=== PATIENT | male | born 1995 | race Caucasian/White ===

== ENCOUNTER 2016-11-08 06:32 | Emergency (ER) | payer SELFPAY ==
[~2016-11-08] VITALS: Ht 180.3 cm; Wt 79.4 kg
[2016-11-08] MEDS ORDERED: FAMOTIDINE 20 MG/2 ML VIAL IVP ONE (07:00)
[2016-11-08] MEDS ORDERED: DEXAMETHASONE SOD PHOS 20 MG/5 ML VIAL. IV ONE (07:00)
--- NOTE | 2016-11-08 07:05 | PHYS DOC ---
Past Medical History Past Medical History: No Pertinent History Past Surgical History: Other Additional Past Surgical Histo: left thumb Alcohol Use: Occasionally Drug Use: Marijuana Social History Narrative: states he tried marijuana once and it was 1 week ago Adult General Chief Complaint Chief Complaint: ALLERGIC REACTION HPI HPI Patient is a 21 year old male who presents with complaint of an allergic reaction. Patient states that his symptoms started last night. The patient states that he thinks he may be allergic to a bedsheet freshener that he sprayed on his sheets yesterday. Patient states that he covered himself in his blanket at about 7:00 and started to have itching across his body. Patient states that he started getting raised red areas all over his body shortly afterward. Patient took 50 mg of Benadryl yesterday evening before midnight, then states that he took another 50 mg of Benadryl prior to arrival here in the emergency department. Patient states that he is not having any respiratory symptoms at this time and does not feel any throat tightening, difficulty breathing, or difficulty swallowing. Patient denies any significant past medical history. Patient currently not in any pain. Review of Systems Review of Systems Constitutional: Denies fever or chills [] Eyes: Denies change in visual acuity, redness, or eye pain [] HENT: Denies nasal congestion or sore throat [] Respiratory: Denies cough or shortness of breath [] Cardiovascular: No additional information not addressed in HPI [] GI: Denies abdominal pain, nausea, vomiting, bloody stools or diarrhea [] : Denies dysuria or hematuria [] Musculoskeletal: Denies back pain or joint pain [] Integument: Rash, pruritus [] Neurologic: Denies headache, focal weakness or sensory changes [] Endocrine: Denies polyuria or polydipsia [] Current Medications Current Medications Current Medications Medications (Trade) Dose Ordered Sig/Shiela Start Time Stop Time Status Last Admin Dose Admin Dexamethasone Sodium Phosphate (Decadron) 16 mg 1X ONCE 11/08/16 07:00 11/08/16 07:01 DC 11/08/16 07:03 16 MG Famotidine (Pepcid) 20 mg 1X ONCE 11/08/16 07:00 11/08/16 07:01 DC 11/08/16 07:02 20 MG Allergies Allergies Allergies Coded Allergies Type Severity Reaction Last Updated Verified No Known Drug Allergies 11/08/16 No Physical Exam Physical Exam Constitutional: Alert, afebrile, No acute distress [] HENT: Normocephalic, atraumatic, bilateral external ears normal, oropharynx moist, no oral exudates, nose normal. [] Eyes: PERRLA, EOMI, conjunctiva normal, no discharge. [] Neck: Normal range of motion, no tenderness, supple, no stridor. [] Cardiovascular:Heart rate regular rhythm, no murmur [] Lungs & Thorax: Bilateral breath sounds clear to auscultation [] Abdomen: Bowel sounds normal, soft, no tenderness, no masses, no pulsatile masses. [] Skin: Warm, dry, diffuse urticarial rash present on neck, trunk, and bilateral upper and lower extremities. [] Back: No tenderness, no CVA tenderness. [] Extremities: No tenderness, no cyanosis, no clubbing, ROM intact, no edema. [] Neurologic: Alert and oriented X 3, normal motor function, normal sensory function, no focal deficits noted. [] Current Patient Data Vital Signs Vital Signs Date Time Temp Pulse Resp B/P Pulse Ox O2 Delivery O2 Flow Rate FiO2 11/08/16 06:35 98.4 98 18 141/81 98 Room Air 98.4 EKG EKG Not performed [] Radiology/Procedures Radiology/Procedures Not performed [] Course & Med Decision Making Course & Med Decision Making Pertinent Labs and Imaging studies reviewed. (See chart for details) The patient was given 60 mg of IV Decadron and 20 mg of IV Pepcid in the emergency department. The patient was observed with no further worsening of symptoms. Recommended that the patient continue on one to 2 capsules of Benadryl every 6 hours, Pepcid twice a day, and patient will be discharged with prescriptions for Medrol Dosepak as well as EpiPen to have on hand in case of severe anaphylactic reaction. Recommended the patient wash his sheets to remove any exposure, and if this does not help the patient will need to replace his sheets at home. Advised follow-up in 4 days if symptoms are not improving and immediately return to the emergency department for any worsening symptoms. Patient was understanding and in agreement with treatment plan. Dragon Disclaimer Dragon Disclaimer This electronic medical record was generated, in whole or in part, using a voice recognition dictation system. Departure Departure Impression: Primary Impression: Allergic reaction Additional Impression: Urticaria Disposition: HOME, SELF-CARE Condition: IMPROVED Patient Instructions: Hives Additional Instructions: Follow-up with your primary doctor in 4 days if symptoms are not improving. Return to the emergency department for any worsening symptoms. Scripts Epinephrine (Epipen 2-Elias)0.3 Mg/0.3 Ml Auto.injct0.3 Mg IJ PRN 1X PRN ANAPHYLAXIS #2 DIS.SYR Take as directed on packaging. Call 911 after giving your self this medication. Prov:MARISSA HEREDIA MD 11/08/16 Methylprednisolone (Medrol)4 Mg Tab.ds.pk1 Pkg PO UD #1 PKG Prov:MARISSA HEREDIA MD 11/08/16 Problem Qualifiers Primary Impression: Allergic reaction Encounter type: initial encounter Qualified Code: T78.40XA - Allergy, unspecified, initial encounter MARISSA HEREDIA MD Nov 08, 2016 07:05
[2016-11-08 07:45] VITALS: BP 127/70
[2016-11-08] MEDS ORDERED: METH4TAB2 PO (07:48)
[2016-11-08] MEDS ORDERED: EPIN0.3A4 IJ (07:48)
== END 2016-11-08 07:55 | disposition home or self-care (01) ==
LOC: ER 06:32
DX: T78.49XA Other allergy, initial encounter (principal); L50.0 Allergic urticaria; F12.10 Cannabis abuse, uncomplicated; X58.XXXA Exposure to other specified factors, initial encounter
CPT/HCPCS: 96374; 96375; 99284; J1100; S0028

== ENCOUNTER 2021-01-07 23:25 | Emergency (ER) | payer SELFPAY ==
[~2021-01-07] VITALS: Ht 185.4 cm; Wt 74.1 kg
[~2021-01-07 23:25] MED LIST: EPIPEN 2-P0.3 MG/0.3 IJ; METH4TAB2 PO
[2021-01-07 23:35] VITALS: BP 112/54
--- NOTE | 2021-01-07 23:58 | PHYS DOC ---
Past Medical History Past Medical History: No Pertinent History Past Surgical History: Other Additional Past Surgical Histo: left thumb Smoking Status: Never Smoker Alcohol Use: Occasionally Drug Use: Marijuana General Adult EDM: Chief Complaint: ALLERGIC REACTION HPI: HPI: 25-year-old male presents with report of pruritic rash all over his body that started today at approximately 11 AM. Patient reports initially started on his legs. Patient reports use of new laundry detergent. Denies taking any medication prior to arrival. Patient denies any tongue swelling or difficulty swallowing or breathing. Denies any other known allergen exposure. Review of Systems: Review of Systems: Constitutional: Denies fever or chills Eyes: Denies redness or eye pain HENT: Denies nasal congestion or tongue swelling Respiratory: Denies cough or shortness of breath Cardiovascular: Denies chest pain or palpitations GI: Denies abdominal pain, nausea, or vomiting : Denies dysuria or hematuria Musculoskeletal: Denies back pain or joint pain Integument: Reports pruritic raised rash Neurologic: Denies headache, focal weakness or sensory changes Complete systems were reviewed and found to be within normal limits, except as documented in this note. Allergies: Allergies: Allergies Coded Allergies Type Severity Reaction Last Updated Verified No Known Drug Allergies 11/08/16 No Physical Exam: PE: Constitutional: Well developed, well nourished, no acute distress, non-toxic appearance HENT: Normocephalic, atraumatic, tongue normal, handling own secretions. Eyes: Conjunctiva normal, no discharge Neck: Normal range of motion, no tenderness, supple Lungs & Thorax: No respiratory distress, equal chest rise and fall Skin: Warm, dry, raised rash consistent with urticaria to trunk and upper arms and legs Extremities: No tenderness, ROM intact, no edema Neurologic: Alert and oriented X 3, no focal deficits noted Psychologic: Affect normal, judgment normal EKG: EKG: [] Radiology/Procedures: Radiology/Procedures: [] Course & Med Decision Making: Course & Med Decision Making Patient presents with HPI and physical exam consistent for urticaria likely secondary to exposure to new detergent. Airway intact. Patient handling own secretions. Tongue normal. Symptomatic IM dexamethasone, p.o. Benadryl, and p.o. Pepcid provided. Patient stable for discharge with outpatient follow-up with PCP. Discussed findings and plan with patient and father, who acknowledge understanding and a greement. Paulina Disclaimer: Paulina Disclaimer: This electronic medical record was generated, in whole or in part, using a voice recognition dictation system. Departure Departure Impression: Primary Impression: Urticaria Disposition: 01 DC HOME SELF CARE/HOMELESS Condition: STABLE Referrals: NO PCP (PCP) Patient Instructions: Hives, [id number] Additional Instructions: Discontinue use of new detergent. Rewash any of your clothing that might have been washed with potential new detergent allergen. Scripts Prednisone (PREDNISONE) 20 Mg Tablet 2 TAB PO DAILY, #8 TAB Start this prescription tomorrow, 01/09/21 Prov: KESHA DUKES DO 01/08/21 Diphenhydramine Hcl (BENADRYL) 25 Mg Capsule 1-2 CAP PO Q4-6HRS PRN for RASH, #20 CAP 0 Refills Prov: KESHA DUKES DO 01/08/21 Famotidine (PEPCID) 20 Mg Tablet 20 MG PO BID, #10 TAB Prov: KESHA DUKES DO 01/08/21 KESHA DUKES DO Jan 07, 2021 23:58
[2021-01-08] MEDS ORDERED: PRED20TA PO (00:03)
[2021-01-08] MEDS ORDERED: FAMO-63 PO (00:03)
[2021-01-08] MEDS ORDERED: DIPH25CA58 PO (00:03)
[2021-01-08] MEDS ORDERED: diphenhydrAMINE HCL 25 MG CAPSULE PO ONE (00:15)
[2021-01-08] MEDS ORDERED: DEXAMETHASONE SOD PHOS 20 MG/5 ML VIAL. IM ONE (00:15)
[2021-01-08] MEDS ORDERED: FAMOTIDINE 20 MG TABLET. PO ONE (00:15)
== END 2021-01-08 00:38 | disposition home or self-care (01) ==
LOC: ER 23:25
DX: L50.8 Other urticaria (principal); R21 Rash and other nonspecific skin eruption; F12.90 Cannabis use, unspecified, uncomplicated; Z98.890 Other specified postprocedural states
CPT/HCPCS: 96372; 99283; J1100; Q0163

== ENCOUNTER 2021-01-08 19:21 | Emergency (ER) | payer SELFPAY ==
[~2021-01-08] VITALS: Ht 185.4 cm; Wt 77.1 kg
[~2021-01-08 19:21] MED LIST changes: +DIPH25CA58 PO; +FAMO-63 PO; +PRED20TA PO
[2021-01-08 20:53] VITALS: BP 114/53
[2021-01-08] MEDS ORDERED: FAMOTIDINE 20 MG TABLET. PO ONE (21:45)
[2021-01-08] MEDS ORDERED: DEXAMETHASONE 4 MG TABLET PO ONE (21:45)
--- NOTE | 2021-01-08 21:45 | PHYS DOC ---
Past Medical History Past Medical History: No Pertinent History (RACHELLE GARCIA APRN) Past Surgical History: No Surgical History Additional Past Surgical Histo: R wrist fx, L thumb fx (RACHELLE GARCIA APRN) Smoking Status: Current Every Day Smoker Alcohol Use: Occasionally Drug Use: None (RACHELLE GARCIA APRN) General Adult EDM: Chief Complaint: SKIN RASH/ABSCESS HPI: HPI: Patient is a 25 year old male who presents with was here yesterday with a pruritic began yesterday at 11:00. He states he was using a new laundry detergent. He was discharged home with a Medrol Dosepak, Pepcid and Benadryl and epinephrine if needed. Patient never got any of his prescriptions filled because he states he does not have the money. He is back today because he states that he still very itchy and is not getting better. He also states that the left side of his tongue was swollen today. Patient states he did take 50 mg of Benadryl at 1740. There is no facial, tongue or throat swelling seen. (RACHELLE GARCIA APPEALS ASSISTANT) Review of Systems: Review of Systems: Constitutional: Denies fever or chills. [] Eyes: Denies change in visual acuity. [] HENT: Denies nasal congestion or sore throat. [] Respiratory: Denies cough or shortness of breath. [] Cardiovascular: Denies chest pain or edema. [] GI: Denies abdominal pain, nausea, vomiting, bloody stools or diarrhea. [] : Denies dysuria. [] Musculoskeletal: Denies back pain or joint pain. [] Integument: +Generalized itchy rash. [] Neurologic: Denies headache, focal weakness or sensory changes. [] Endocrine: Denies polyuria or polydipsia. [] Lymphatic: Denies swollen glands. [] Psychiatric: Denies depression or anxiety. [] (RACHELLE GARCIA APRN) Heart Score: Risk Factors: Risk Factors: DM, Current or recent (<one month) smoker, HTN, HLP, family history of CAD, obesity. Risk Scores: Score 0 - 3: 2.5% MACE over next 6 weeks - Discharge Home Score 4 - 6: 20.3% MACE over next 6 weeks - Admit for Clinical Observation Score 7 - 10: 72.7% MACE over next 6 weeks - Early Invasive Strategies (RACHELLE GARCIA APRN) Current Medications: Current Medications Medications (Trade) Dose Ordered Sig/Shiela Start Time Stop Time Status Last Admin Dose Admin Dexamethasone (Decadron) 10 mg 1X 01/08/21 21:45 UNV Famotidine (Pepcid) 20 mg 1X ONCE 01/08/21 21:45 01/08/21 21:46 UNV (RACHELLE GARCIA APRN) Allergies: Allergies: Allergies Coded Allergies Type Severity Reaction Last Updated Verified No Known Drug Allergies 11/08/16 No (RACHELLE GARCIA APRN) Physical Exam: PE: Constitutional: Well developed, well nourished, no acute distress, non-toxic appearance. [] HENT: Normocephalic, atraumatic, bilateral external ears normal, oropharynx moist, no oral exudates, nose normal. [] Eyes: PERRLA, EOMI, conjunctiva normal, no discharge. [] Neck: Normal range of motion, no tenderness, supple, no stridor. [] Cardiovascular:Heart rate regular rhythm, no murmur [] Lungs & Thorax: Bilateral breath sounds clear to auscultation [] Abdomen: Bowel sounds normal, soft, no tenderness, no masses, no pulsatile masses. [] Skin: Warm, dry, no erythema, generalized red nonblistered rash. [] Back: No tenderness, no CVA tenderness. [] Extremities: No tenderness, no cyanosis, no clubbing, ROM intact, no edema. [] Neurologic: Alert and oriented X 3, normal motor function, normal sensory function, no focal deficits noted. [] Psychologic: Affect normal, judgement normal, mood normal. [] (RACHELLE GARCIA APRN) Current Patient Data: Vital Signs: Vital Signs Date Time Temp Pulse Resp B/P (MAP) Pulse Ox O2 Delivery O2 Flow Rate FiO2 01/08/21 20:53 98.3 87 20 98 Room Air 98.3 (RACHELLE GARCIA APRN) EKG: EKG: [] ([facility]EREIRA APRN) Radiology/Procedures: Radiology/Procedures: [] (RACHELLE GARCIA APRN) Course & Med Decision Making: Course & Med Decision Making Pertinent Labs and Imaging studies reviewed. (See chart for details) See HPI. Ambulatory with steady gait and speaks in full clear sentences. No angioedema or swelling to tongue, lips, uvula or throat is seen on exam. Lungs are clear all station all lobes. Vital signs within normal limits. He was given 10 mg of dexamethasone, Pepcid in the ED. Patient denies shortness of b reath, nausea, vomiting, diarrhea, fever, wheezing, chest pain. [] (RACHELLE GARCIA APRN) Course & Med Decision Making Patient seen and evaluated by GWENDOLYN independently. I was available for consultation. (JAMAR KRISHNAN DO) Dragon Disclaimer: [employer] Disclaimer: This electronic medical record was generated, in whole or in part, using a voice recognition dictation system. (RACHELLE GARCIA APRN) Departure Departure Impression: Primary Impression: Allergic reaction Qualified Codes: T78.40XD - Allergy, unspecified, subsequent encounter Additional Impression: Urticaria Disposition: 01 DC HOME SELF CARE/HOMELESS Condition: STABLE Referrals: NO PCP (PCP) Patient Instructions: Allergies, Generic, Rash Additional Instructions: Get your prescriptions filled as soon as possible. Continue taking Benadryl 25 mg every 6 hours. If you begin having facial swelling and shortness of breath return emergency room. RACHELLE GARCIA APRN Jan 08, 2021 21:45 JAMAR KRISHNAN DO Jan 08, 2021 22:42
== END 2021-01-08 23:03 | disposition home or self-care (01) ==
LOC: ER 19:21
DX: L50.0 Allergic urticaria (principal); F17.200 Nicotine dependence, unspecified, uncomplicated
CPT/HCPCS: 99283

== ENCOUNTER 2021-01-10 00:04 | Observation (INO) | payer SELFPAY ==
[~2021-01-10] VITALS: Ht 185.4 cm; Wt 77.3 kg
[2021-01-10] MEDS ORDERED: FAMOTIDINE 20 MG/2 ML VIAL IVP ONE (00:30)
[2021-01-10] MEDS ORDERED: ONDANSETRON PF 4 MG/2 ML VIAL. IVP ONE (00:30)
[2021-01-10] MEDS ORDERED: DEXAMETHASONE 4 MG TABLET PO ONE (00:30)
--- NOTE | 2021-01-10 01:08 | PHYS DOC ---
Past Medical History Past Medical History: No Pertinent History Past Surgical History: No Surgical History Additional Past Surgical Histo: R wrist fx, L thumb fx Smoking Status: Current Every Day Smoker Alcohol Use: Occasionally Drug Use: None Adult General Chief Complaint Chief Complaint: ALLERGIC REACTION HPI HPI Patient is a 25 year old male presenting the emergency department for worsening generalized rash. Patient has been here the last 2 days because 2 days ago he started noting mild generalized rash. Patient has mother believe that this was secondary to exposure to new detergent. Over the last 24 hours patient feels this may get worse. Patient was seen and treated here yesterday appears to have gotten multiple medications to help. Does state that he took, took a Benadryl but feels that this is gotten worse. Patient states that over the last 2 hours noted swelling around the eyes, nausea and vomiting as well as lip swelling and feels that there are hives and urticaria have severely increased. Denies any abdominal pain, diarrhea, fever or chills Review of Systems Review of Systems Constitutional: Denies fever or chills [] Eyes: Denies change in visual acuity, redness, or eye pain [] HENT: Denies nasal congestion or sore throat [] Respiratory: Denies cough or shortness of breath [] Cardiovascular: No additional information not addressed in HPI [] GI: Denies abdominal pain, nausea, vomiting, bloody stools or diarrhea [] : Denies dysuria or hematuria [] Musculoskeletal: Denies back pain or joint pain [] Integument: Denies rash or skin lesions [] Neurologic: Denies headache, focal weakness or sensory changes [] Endocrine: Denies polyuria or polydipsia [] All other systems were reviewed and found to be within normal limits, except as documented in this note. Current Medications Current Medications Current Medications Medications (Trade) Dose Ordered Sig/Shiela Start Time Stop Time Status Last Admin Dose Admin Dexamethasone (Decadron) 16 mg ONCE ONCE 01/10/21 00:30 01/10/21 00:31 DC 01/10/21 01:11 16 MG Epinephrine HCl (Adrenalin) 0.3 mg 1X ONCE 01/10/21 02:15 01/10/21 02:16 DC 01/10/21 03:13 0.3 MG Famotidine (Pepcid Vial) 20 mg 1X ONCE 01/10/21 00:30 01/10/21 00:31 DC 01/10/21 00:28 20 MG Ondansetron HCl (Zofran) 4 mg 1X ONCE 01/10/21 00:30 01/10/21 00:31 DC 01/10/21 00:28 4 MG Allergies Allergies Allergies Coded Allergies Type Severity Reaction Last Updated Verified No Known Drug Allergies 11/08/16 No Physical Exam Physical Exam Constitutional: Well developed, well nourished, no acute distress, non-toxic appearance. [] HENT: Normocephalic, atraumatic, bilateral external ears normal, oropharynx moist, no oral exudates, nose normal. [] Eyes: PERRLA, EOMI, conjunctiva normal, no discharge. [] Neck: Normal range of motion, no tenderness, supple, no stridor. [] Cardiovascular:Heart rate regular rhythm, no murmur [] Lungs & Thorax: Bilateral breath sounds clear to auscultation [] Abdomen: Bowel sounds normal, soft, no tenderness, no masses, no pulsatile masses. [] Skin: Warm, dry, no erythema, severe generalized urticarial rash which does include bilateral upper eyelids. [] Back: No tenderness, no CVA tenderness. [] Extremities: No tenderness, no cyanosis, no clubbing, ROM intact, no edema. [] Neurologic: Alert and oriented X 3, normal motor function, normal sensory function, no focal deficits noted. [] Psychologic: Affect normal, judgement normal, mood normal. [] Current Patient Data Vital Signs Vital Signs Date Time Temp Pulse Resp B/P (MAP) Pulse Ox O2 Delivery O2 Flow Rate FiO2 01/10/21 00:10 98.4 97 16 100/63 (75) 100 Room Air 98.4 Lab Values Laboratory Tests Test 01/10/21 03:37 01/10/21 03:50 White Blood Count 14.0 x10^3/uL (4.0-11.0) H Red Blood Count 4.69 x10^6/uL (4.30-5.70) Hemoglobin 14.5 g/dL (13.0-17.5) Hematocrit 42.4 % (39.0-53.0) Mean Corpuscular Volume 90 fL (79-100) Mean Corpuscular Hemoglobin 31 pg (25-35) Mean Corpuscular Hemoglobin Concent 34 g/dL (31-37) Red Cell Distribution Width 13.6 % (11.5-14.5) Platelet Count 183 x10^3/uL (140-400) Neutrophils (%) (Auto) 89 % (31-73) H Lymphocytes (%) (Auto) 8 % (24-48) L Monocytes (%) (Auto) 3 % (0-9) Eosinophils (%) (Auto) 1 % (0-3) Basophils (%) (Auto) 0 % (0-3) Neutrophils # (Auto) 12.5 x10^3/uL (1.8-7.7) H Lymphocytes # (Auto) 1.1 x10^3/uL (1.0-4.8) Monocytes # (Auto) 0.4 x10^3/uL (0.0-1.1) Eosinophils # (Auto) 0.1 x10^3/uL (0.0-0.7) Basophils # (Auto) 0.0 x10^3/uL (0.0-0.2) Segmented Neutrophils % 80 % (35-66) H Band Neutrophils % 6 % (0-9) Lymphocytes % 9 % (24-48) L Monocytes % 5 % (0-10) Platelet Estimate Adequate (ADEQUATE) Prothrombin Time 13.4 SEC (11.7-14.0) Prothrombin Time INR 1.1 (0.8-1.1) Activated Partial Thromboplast Time 24 SEC (24-38) Sodium Level 138 mmol/L (136-145) Potassium Level 3.6 mmol/L (3.5-5.1) Chloride Level 103 mmol/L (98-107) Carbon Dioxide Level 27 mmol/L (21-32) Anion Gap 8 (6-14) Blood Urea Nitrogen 19 mg/dL (8-26) Creatinine 1.2 mg/dL (0.7-1.3) Estimated GFR (Cockcroft-Gault) 73.2 Glucose Level 134 mg/dL (70-99) H Calcium Level 8.3 mg/dL (8.5-10.1) L Total Bilirubin 0.7 mg/dL (0.2-1.0) Direct Bilirubin 0.2 mg/dL (0.0-0.2) Aspartate Amino Transferase (AST) 30 U/L (15-37) Alanine Aminotransferase (ALT) 43 U/L (16-63) Alkaline Phosphatase 56 U/L (46-116) Total Protein 6.9 g/dL (6.4-8.2) Albumin 4.0 g/dL (3.4-5.0) Lactic Acid Level 0.9 mmol/L (0.4-2.0) Laboratory Tests 01/10/21 03:37 Laboratory Tests 01/10/21 03:37 EKG EKG [] Radiology/Procedures Radiology/Procedures [] Course & Med Decision Making Course & Med Decision Making Pertinent Labs and Imaging studies reviewed. (See chart for details) 25M presenting with what appears to be worsening allergic reaction but now involves lips of the eyes. At this time will provide Benadryl, Pepcid and Solu- Medrol and reevaluate. At this time there is no evidence of acute impending airway involvement. After initial treatment patient only had minimal response. Patient was given a dose of epinephrine did have moderate improvement but still with significant swelling around the eyes. At this time will admit. Labs reviewed and unremarkable Paulina Disclaimer Paulina Disclaimer This electronic medical record was generated, in whole or in part, using a voice recognition dictation system. Departure Departure Impression: Primary Impression: Acute allergic reaction Disposition: ADMITTED INPT THIS HOSP Condition: GUARDED Referrals: NO PCP (PCP) MARISSA MYERS MD Jan 10, 2021 01:08
[2021-01-10] MEDS ORDERED: EPINEPHrine 1 MG/ML VIAL SQ ONE (02:15)
[2021-01-10 03:51] LABS: BASO % 0 % (0-3); EOS # 0.1 x10^3/uL (0.0-0.7); EOS % 1 % (0-3); HEMATOCRIT 42.4 % (39.0-53.0); HEMOGLOBIN 14.5 g/dL (13.0-17.5); LYMPH # 1.1 x10^3/uL (1.0-4.8); LYMPH % 8 % (24-48); MEAN CORPUSCULAR HEMOGLOBIN 31 pg (25-35); MEAN CORPUSCULAR HGB CONC 34 g/dL (31-37); MEAN CORPUSCULAR VOLUME 90 fL (79-100); MONO # 0.4 x10^3/uL (0.0-1.1); MONO % 3 % (0-9); NEUT # 12.5 x10^3/uL (1.8-7.7); NEUT % 89 % (31-73); PLATELET COUNT 183 x10^3/uL (140-400); RED BLOOD COUNT 4.69 x10^6/uL (4.30-5.70); RED CELL DISTRIBUTION WIDTH 13.6 % (11.5-14.5)
[2021-01-10 04:08] LABS: PROTHROMBIN TIME PATIENT 13.4 SEC (11.7-14.0)
[2021-01-10 04:09] LABS: CALCIUM 8.3 mg/dL (8.5-10.1); CREATININE 1.2 mg/dL (0.7-1.3); GFR 73.2; POTASSIUM 3.6 mmol/L (3.5-5.1)
[2021-01-10 04:17] LABS: DIRECT BILIRUBIN 0.2 mg/dL (0.0-0.2); TOTAL BILIRUBIN 0.7 mg/dL (0.2-1.0); TOTAL PROTEIN 6.9 g/dL (6.4-8.2)
[2021-01-10 05:54] LABS: % BANDS 6 % (0-9); % LYMPHS 9 % (24-48); % MONOS 5 % (0-10); % SEGS 80 % (35-66); PLT ESTIMATE ADEQUATE (ADEQUATE)
[2021-01-10 06:07] LABS: BILIRUBIN,URINE SMALL (NEG); CLARITY,URINE CLEAR; COLOR,URINE YELLOW; NITRITE,URINE NEGATIVE (NEG); PROTEIN,URINE NEGATIVE (NEG-TRACE)
[2021-01-10] MEDS ORDERED: ONDANSETRON PF 4 MG/2 ML VIAL. IV PRN (06:15)
[2021-01-10] MEDS ORDERED: MORPHINE SULFATE 4 MG/ML VIAL. IV PRN (06:15)
[2021-01-10 06:31] LABS: BACTERIA,URINE FEW /HPF (0-FEW); RBC,URINE 0 /HPF (0-2)
[2021-01-10 07:45] VITALS: BP 121/73
--- NOTE | 2021-01-10 10:07 | RAD ---
EXAM: PA and Lateral Views of the Chest DATE: 01/10/2021 9:42 AM INDICATION: Reason: vasculitis COMPARISON: No Prior FINDINGS: The heart is not enlarged. Mediastinal and hilar contours are normal. No focal parenchymal airspace opacity. No pleural effusion or pneumothorax. IMPRESSION: 1. No radiographic evidence for acute cardiopulmonary process. Electronically signed by: Zaheer Garcia MD (01/10/2021 10:05 AM) [id number]
[2021-01-10] MEDS ORDERED: IBUPROFEN 400 MG TABLET. PO ONE (10:45)
[2021-01-10] MEDS ORDERED: COLCHICINE 0.6 MG TABLET PO ONE (10:45)
[2021-01-10] MEDS: predniSONE 20 MG TABLET PO SCH (10:55)
[2021-01-10 11:00] VITALS: BP 125/63
--- NOTE | 2021-01-10 13:26 | PDOC1 ---
History and Physical Date of Admission Date of Admission DATE: 01/10/21 TIME: 13:21 Identification/Chief Complaint Chief Complaint rash Source Source: Chart review, Patient History of Present Illness History of Present Illness Mr. Sheikh, is a 25 year old male admit with severe rash. He has been to the ER 3 times in 4 days for this rash, given large doses of de cadron each time, and DC twice with meds that he did not fill. 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, they initially thought that he had new detergent, but removal of that has not improved his rash, Past Medical History Cardiovascular: No pertinent hx Pulmonary: No pertinent hx GI: No pertinent hx Heme/Onc: No pertinent hx Hepatobiliary: No pertinent hx Rheumatologic: No pertinent hx Social History Smoke: No ALCOHOL: none Drugs: None Current Problem List Problem List Problems Medical Problems: (1) Acute allergic reaction Status: Acute Current Medications Current Medications Current Medications Dexamethasone (Decadron) 16 mg ONCE ONCE PO Last administered on 01/10/21at 01:11; Start 01/10/21 at 00:30; Stop 01/10/21 at 00:31; Status DC Ondansetron HCl (Zofran) 4 mg 1X ONCE IVP Last administered on 01/10/21at 00:28; Start 01/10/21 at 00:30; Stop 01/10/21 at 00:31; Status DC Famotidine (Pepcid Vial) 20 mg 1X ONCE IVP Last administered on 01/10/21at 00:28; Start 01/10/21 at 00:30; Stop 01/10/21 at 00:31; Status DC Epinephrine HCl (Adrenalin) 0.3 mg 1X ONCE SQ Last administered on 01/10/21at 03:13; Start 01/10/21 at 02:15; Stop 01/10/21 at 02:16; Status DC Ondansetron HCl (Zofran) 4 mg PRN Q8HRS PRN IV NAUSEA/VOMITING Last administered on 01/10/21at 07:25; Start 01/10/21 at 06:15; Stop 01/11/21 at 06:14 Morphine Sulfate (Morphine Sulfate) 4 mg PRN Q2HR PRN IV PAIN Last administered on 01/10/21at 07:26; Start 01/10/21 at 06:15; Stop 01/11/21 at 06:14 Prednisone (Prednisone) 40 mg DAILY PO Last administered on 01/10/21at 10:55; Start 01/10/21 at 10:00 Colchicine (Colcrys) 0.6 mg 1X ONCE PO Last administered on 01/10/21at 11:43; Start 01/10/21 at 10:45; Stop 01/10/21 at 11:28; Status DC Ibuprofen (Motrin) 800 mg 1X ONCE PO Last administered on 01/10/21at 11:42; Start 01/10/21 at 10:45; Stop 01/10/21 at 11:28; Status DC Active Scripts Active Prednisone 20 Mg Tablet 2 Tab PO DAILY Start this prescription tomorrow, 01/09/21 Benadryl (Diphenhydramine Hcl) 25 Mg Capsule 1-2 Cap PO Q4-6HRS PRN Pepcid (Famotidine) 20 Mg Tablet 20 Mg PO BID Epipen 2-Elias (Epinephrine) 0.3 Mg/0.3 Ml Auto.injct 0.3 Mg IJ PRN 1X PRN Take as directed on packaging. Call 911 after giving your self this medication. Medrol (Methylprednisolone) 4 Mg Tab.ds.pk 1 Pkg PO UD Allergies Allergies: Coded Allergies: No Known Drug Allergies (Unverified , 11/08/16) ROS General: No: Chills, Night Sweats, Fatigue, Malaise, Appetite, Other PSYCHOLOGICAL ROS: No: Anxiety, Behavioral Disorder, Concentration difficultie, Decreased libido, Depression, Disorientation, Hallucinations, Hostility, Irritablity, Memory difficulties, Mood Swings, Obsessive thoughts, Physical abuse, Sexual abuse, Sleep disturbances, Suicidal ideation, Other Eyes: No Blurry vision, No Decreased vision, No Double vision, No Dry eyes, No Excessive tearing, No Eye Pain, No Itchy Eyes, No Loss of vision, No Photophobia, No Scotomata, No Uses contacts, No Uses glasses, No Other HEENT: No: Heacaches, Visual Changes, Hearing change, Nasal congestion, Nasal discharge, Oral lesions, Sinus pain, Sore Throat, Epistaxis, Sneezing, Snoring, Tinnitus, Vertigo, Vocal changes, Other ALLERGY AND IMMUNOLOGY: YES: Hives Respiratory: No: Cough, Hemoptysis, Orthopnea, Pleuritic Pain, Shortness of breath, SOB with excertion, Sputum Changes, Stridor, Tachypnea, Wheezing, Other Cardiovascular: No Chest Pain, No Palpitations, No Orthopnea, No Paroxysmal Noc. Dyspnea, No Edema, No Lt Headedness, No Other Gastrointestinal: No Nausea, No Vomiting, No Abdominal Pain, No Diarrhea, No Constipation, No Melena, No Hematochezia, No Other Genitourinary: No Dysuria, No Frequency, No Incontinence, No Hematuria, No R etention, No Discharge, No Urgency, No Pain, No Flank Pain, No Other, No , No , No , No , No , No , No Musculoskeletal: No Gait Disturbance, No Joint Pain, No Joint Stiffness, No Joint Swelling, No Muscle Pain, No Muscular Weakness, No Pain In:, No Swelling In:, No Other Skin: Yes Pruritus, Yes Rash, Yes Skin Lesion Changes, Yes Other; No Dry Skin, No Eczema, No Hair Changes, No Lumps, No Mole Changes, No Mottling, No Nail Changes, No Acne Physical Exam General: Alert, Oriented X3, moderate distress (itching, red, ) HEENT: Atraumatic, Mucous membr. moist/pink Lungs: Clear to auscultation Heart: S1S2, no murmurs, murmurs Extremities: No cyanosis Skin: No breakdown, Other (very numerous wheals, uticarial rash to groin, back, chest, neck, face is red without any wheal, left hand more swollen than righ) Neuro: Normal speech, Sensation intact Psych/Mental Status: Mental status NL, Mood NL Vitals Vitals Vital Signs Date Time Temp Pulse Resp B/P (MAP) Pulse Ox O2 Delivery O2 Flow Rate FiO2 01/10/21 11:00 98.3 87 18 125/63 (83) 97 Room Air 98.3 Labs Labs Laboratory Tests Test 01/10/21 03:37 01/10/21 03:50 01/10/21 05:00 White Blood Count 14.0 x10^3/uL (4.0-11.0) Red Blood Count 4.69 x10^6/uL (4.30-5.70) Hemoglobin 14.5 g/dL (13.0-17.5) Hematocrit 42.4 % (39.0-53.0) Mean Corpuscular Volume 90 fL (79-100) Mean Corpuscular Hemoglobin 31 pg (25-35) Mean Corpuscular Hemoglobin Concent 34 g/dL (31-37) Red Cell Distribution Width 13.6 % (11.5-14.5) Platelet Count 183 x10^3/uL (140-400) Neutrophils (%) (Auto) 89 % (31-73) Lymphocytes (%) (Auto) 8 % (24-48) Monocytes (%) (Auto) 3 % (0-9) Eosinophils (%) (Auto) 1 % (0-3) Basophils (%) (Auto) 0 % (0-3) Neutrophils # (Auto) 12.5 x10^3/uL (1.8-7.7) Lymphocytes # (Auto) 1.1 x10^3/uL (1.0-4.8) Monocytes # (Auto) 0.4 x10^3/uL (0.0-1.1) Eosinophils # (Auto) 0.1 x10^3/uL (0.0-0.7) Basophils # (Auto) 0.0 x10^3/uL (0.0-0.2) Segmented Neutrophils % 80 % (35-66) Band Neutrophils % 6 % (0-9) Lymphocytes % 9 % (24-48) Monocytes % 5 % (0-10) Platelet Estimate Adequate (ADEQUATE) Prothrombin Time 13.4 SEC (11.7-14.0) Prothromb Time International Ratio 1.1 (0.8-1.1) Activated Partial Thromboplast Time 24 SEC (24-38) Sodium Level 138 mmol/L (136-145) Potassium Level 3.6 mmol/L (3.5-5.1) Chloride Level 103 mmol/L (98-107) Carbon Dioxide Level 27 mmol/L (21-32) Anion Gap 8 (6-14) Blood Urea Nitrogen 19 mg/dL (8-26) Creatinine 1.2 mg/dL (0.7-1.3) Estimated GFR (Cockcroft-Gault) 73.2 Glucose Level 134 mg/dL (70-99) Calcium Level 8.3 mg/dL (8.5-10.1) Total Bilirubin 0.7 mg/dL (0.2-1.0) Direct Bilirubin 0.2 mg/dL (0.0-0.2) Aspartate Amino Transf (AST/SGOT) 30 U/L (15-37) Alanine Aminotransferase (ALT/SGPT) 43 U/L (16-63) Alkaline Phosphatase 56 U/L (46-116) C-Reactive Protein, Quantitative 7.1 mg/L (0-3.3) Total Protein 6.9 g/dL (6.4-8.2) Albumin 4.0 g/dL (3.4-5.0) Lactic Acid Level 0.9 mmol/L (0.4-2.0) Urine Collection Type Unknown Urine Color Yellow Urine Clarity Clear Urine pH 6.0 (<5.0-8.0) Urine Specific [place] >=1.030 (1.000-1.030) Urine Protein Negative mg/dL (NEG-TRACE) Urine Glucose (UA) Negative mg/dL (NEG) Urine Ketones (Stick) 15 mg/dL (NEG) Urine Blood Negative (NEG) Urine Nitrite Negative (NEG) Urine Bilirubin Small (NEG) Urine Urobilinogen Dipstick 1.0 mg/dL (0.2 mg/dL) Urine Leukocyte Esterase Negative (NEG) Urine RBC 0 /HPF (0-2) Urine WBC 1-4 /HPF (0-4) Urine Squamous Epithelial Cells Few /LPF Urine Bacteria Few /HPF (0-FEW) Urine Mucus Marked /LPF Laboratory Tests Test 01/10/21 03:37 01/10/21 03:50 01/10/21 05:00 White Blood Count 14.0 x10^3/uL (4.0-11.0) Red Blood Count 4.69 x10^6/uL (4.30-5.70) Hemoglobin 14.5 g/dL (13.0-17.5) Hematocrit 42.4 % (39.0-53.0) Mean Corpuscular Volume 90 fL (79-100) Mean Corpuscular Hemoglobin 31 pg (25-35) Mean Corpuscular Hemoglobin Concent 34 g/dL (31-37) Red Cell Distribution Width 13.6 % (11.5-14.5) Platelet Count 183 x10^3/uL (140-400) Neutrophils (%) (Auto) 89 % (31-73) Lymphocytes (%) (Auto) 8 % (24-48) Monocytes (%) (Auto) 3 % (0-9) Eosinophils (%) (Auto) 1 % (0-3) Basophils (%) (Auto) 0 % (0-3) Neutrophils # (Auto) 12.5 x10^3/uL (1.8-7.7) Lymphocytes # (Auto) 1.1 x10^3/uL (1.0-4.8) Monocytes # (Auto) 0.4 x10^3/uL (0.0-1.1) Eosinophils # (Auto) 0.1 x10^3/uL (0.0-0.7) Basophils # (Auto) 0.0 x10^3/uL (0.0-0.2) Segmented Neutrophils % 80 % (35-66) Band Neutrophils % 6 % (0-9) Lymphocytes % 9 % (24-48) Monocytes % 5 % (0-10) Platelet Estimate Adequate (ADEQUATE) Prothrombin Time 13.4 SEC (11.7-14.0) Prothromb Time International Ratio 1.1 (0.8-1.1) Activated Partial Thromboplast Time 24 SEC (24-38) Sodium Level 138 mmol/L (136-145) Potassium Level 3.6 mmol/L (3.5-5.1) Chloride Level 103 mmol/L (98-107) Carbon Dioxide Level 27 mmol/L (21-32) Anion Gap 8 (6-14) Blood Urea Nitrogen 19 mg/dL (8-26) Creatinine 1.2 mg/dL (0.7-1.3) Estimated GFR (Cockcroft-Gault) 73.2 Glucose Level 134 mg/dL (70-99) Calcium Level 8.3 mg/dL (8.5-10.1) Total Bilirubin 0.7 mg/dL (0.2-1.0) Direct Bilirubin 0.2 mg/dL (0.0-0.2) Aspartate Amino Transf (AST/SGOT) 30 U/L (15-37) Alanine Aminotransferase (ALT/SGPT) 43 U/L (16-63) Alkaline Phosphatase 56 U/L (46-116) C-Reactive Protein, Quantitative 7.1 mg/L (0-3.3) Total Protein 6.9 g/dL (6.4-8.2) Albumin 4.0 g/dL (3.4-5.0) Lactic Acid Level 0.9 mmol/L (0.4-2.0) Urine Collection Type Unknown Urine Color Yellow Urine Clarity Clear Urine pH 6.0 (<5.0-8.0) Urine Specific [place] >=1.030 (1.000-1.030) Urine Protein Negative mg/dL (NEG-TRACE) Urine Glucose (UA) Negative mg/dL (NEG) Urine Ketones (Stick) 15 mg/dL (NEG) Urine Blood Negative (NEG) Urine Nitrite Negative (NEG) Urine Bilirubin Small (NEG) Urine Urobilinogen Dipstick 1.0 mg/dL (0.2 mg/dL) Urine Leukocyte Esterase Negative (NEG) Urine RBC 0 /HPF (0-2) Urine WBC 1-4 /HPF (0-4) Urine Squamous Epithelial Cells Few /LPF Urine Bacteria Few /HPF (0-FEW) Urine Mucus Marked /LPF VTE Prophylaxis Ordered VTE Prophylaxis Devices: No VTE Pharmacological Prophylaxi: No Assessment/Plan 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 [facility], he is trying to get insurance today Justifications for Admission Other Justification DANA JONES MD Jan 10, 2021 13:26
[2021-01-10 15:00] VITALS: BP 138/51
[2021-01-10] MEDS: IBUPROFEN 400 MG TABLET. PO SCH ×2 (16:59→21:11)
[2021-01-10] MEDS ORDERED: methylPREDNISolone SOD SUCC PF 40 MG/ML VIAL. IV ONE (18:15)
[2021-01-10] MEDS ORDERED: MONTELUKAST SODIUM 10 MG TABLET. PO SCH (18:15)
[2021-01-10] MEDS: diphenhydrAMINE 50 MG/ML VIAL IVP PRN (18:25)
[2021-01-10 19:00] VITALS: BP 116/70
[2021-01-10] MEDS: FAMOTIDINE 20 MG/2 ML VIAL IVP SCH (21:11)
[2021-01-10 23:00] VITALS: BP 114/5
[2021-01-11 03:00] VITALS: BP 107/51
[2021-01-11 04:21] LABS: BASO % 0 % (0-3); EOS % 0 % (0-3); HEMATOCRIT 39.6 % (39.0-53.0); LYMPH # 0.9 x10^3/uL (1.0-4.8); LYMPH % 8 % (24-48); MEAN CORPUSCULAR HEMOGLOBIN 30 pg (25-35); MEAN CORPUSCULAR HGB CONC 33 g/dL (31-37); MEAN CORPUSCULAR VOLUME 92 fL (79-100); MONO # 0.6 x10^3/uL (0.0-1.1); MONO % 5 % (0-9); NEUT # 9.5 x10^3/uL (1.8-7.7); NEUT % 86 % (31-73); PLATELET COUNT 150 x10^3/uL (140-400); RED BLOOD COUNT 4.32 x10^6/uL (4.30-5.70); RED CELL DISTRIBUTION WIDTH 14.2 % (11.5-14.5); WHITE BLOOD COUNT 11.1 x10^3/uL (4.0-11.0)
[2021-01-11 04:32] LABS: CALCIUM 8.5 mg/dL (8.5-10.1); CREATININE 1.1 mg/dL (0.7-1.3); GFR 80.9; POTASSIUM 4.9 mmol/L (3.5-5.1)
[2021-01-11 07:14] VITALS: BP 124/69
[2021-01-11] MEDS: predniSONE 20 MG TABLET PO SCH (08:24)
[2021-01-11] MEDS: FAMOTIDINE 20 MG/2 ML VIAL IVP SCH (08:25)
[2021-01-11] MEDS: diphenhydrAMINE 50 MG/ML VIAL IVP PRN (08:25)
[2021-01-11] MEDS ORDERED: IBUP-1027 PO (08:49)
[2021-01-11] MEDS ORDERED: MONT10TA49 PO (08:49)
[2021-01-11] MEDS ORDERED: COLC0.6T34 PO (08:49)
[2021-01-11] MEDS ORDERED: COLCHICINE 0.6 MG TABLET PO SCH (09:00)
--- NOTE | 2021-01-11 09:41 | PDOC3 ---
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, Problems Medical Problems: (1) Acute allergic reaction Status: Acute Brief Hospital Course Allergies Allergies Coded Allergies Type Severity Reaction Last Updated Verified No Known Drug Allergies 11/08/16 No Vital Signs Vital Signs Date Time Temp Pulse Resp B/P (MAP) Pulse Ox O2 Delivery O2 Flow Rate FiO2 01/11/21 07:14 97.6 72 18 124/69 (87) 99 Room Air 97.6 Lab Results Laboratory Tests Test 01/10/21 03:37 01/10/21 03:50 01/10/21 05:00 01/11/21 03:30 White Blood Count 14.0 x10^3/uL (4.0-11.0) 11.1 x10^3/uL (4.0-11.0) Red Blood Count 4.69 x10^6/uL (4.30-5.70) 4.32 x10^6/uL (4.30-5.70) Hemoglobin 14.5 g/dL (13.0-17.5) 13.0 g/dL (13.0-17.5) Hematocrit 42.4 % (39.0-53.0) 39.6 % (39.0-53.0) Mean Corpuscular Volume 90 fL (79-100) 92 fL (79-100) Mean Corpuscular Hemoglobin 31 pg (25-35) 30 pg (25-35) Mean Corpuscular Hemoglobin Concent 34 g/dL (31-37) 33 g/dL (31-37) Red Cell Distribution Width 13.6 % (11.5-14.5) 14.2 % (11.5-14.5) Platelet Count 183 x10^3/uL (140-400) 150 x10^3/uL (140-400) Neutrophils (%) (Auto) 89 % (31-73) 86 % (31-73) Lymphocytes (%) (Auto) 8 % (24-48) 8 % (24-48) Monocytes (%) (Auto) 3 % (0-9) 5 % (0-9) Eosinophils (%) (Auto) 1 % (0-3) 0 % (0-3) Basophils (%) (Auto) 0 % (0-3) 0 % (0-3) Neutrophils # (Auto) 12.5 x10^3/uL (1.8-7.7) 9.5 x10^3/uL (1.8-7.7) Lymphocytes # (Auto) 1.1 x10^3/uL (1.0-4.8) 0.9 x10^3/uL (1.0-4.8) Monocytes # (Auto) 0.4 x10^3/uL (0.0-1.1) 0.6 x10^3/uL (0.0-1.1) Eosinophils # (Auto) 0.1 x10^3/uL (0.0-0.7) 0.0 x10^3/uL (0.0-0.7) Basophils # (Auto) 0.0 x10^3/uL (0.0-0.2) 0.0 x10^3/uL (0.0-0.2) Segmented Neutrophils % 80 % (35-66) Band Neutrophils % 6 % (0-9) Lymphocytes % 9 % (24-48) Monocytes % 5 % (0-10) Platelet Estimate Adequate (ADEQUATE) Prothrombin Time 13.4 SEC (11.7-14.0) Prothromb Time International Ratio 1.1 (0.8-1.1) Activated Partial Thromboplast Time 24 SEC (24-38) Sodium Level 138 mmol/L (136-145) 140 mmol/L (136-145) Potassium Level 3.6 mmol/L (3.5-5.1) 4.9 mmol/L (3.5-5.1) Chloride Level 103 mmol/L (98-107) 104 mmol/L (98-107) Carbon Dioxide Level 27 mmol/L (21-32) 28 mmol/L (21-32) Anion Gap 8 (6-14) 8 (6-14) Blood Urea Nitrogen 19 mg/dL (8-26) 17 mg/dL (8-26) Creatinine 1.2 mg/dL (0.7-1.3) 1.1 mg/dL (0.7-1.3) Estimated GFR (Cockcroft-Gault) 73.2 80.9 Glucose Level 134 mg/dL (70-99) 138 mg/dL (70-99) Calcium Level 8.3 mg/dL (8.5-10.1) 8.5 mg/dL (8.5-10.1) Total Bilirubin 0.7 mg/dL (0.2-1.0) Direct Bilirubin 0.2 mg/dL (0.0-0.2) Aspartate Amino Transf (AST/SGOT) 30 U/L (15-37) Alanine Aminotransferase (ALT/SGPT) 43 U/L (16-63) Alkaline Phosphatase 56 U/L (46-116) C-Reactive Protein, Quantitative 7.1 mg/L (0-3.3) Total Protein 6.9 g/dL (6.4-8.2) Albumin 4.0 g/dL (3.4-5.0) Lactic Acid Level 0.9 mmol/L (0.4-2.0) Urine Collection Type Unknown Urine Color Yellow Urine Clarity Clear Urine pH 6.0 (<5.0-8.0) Urine Specific [place] >=1.030 (1.000-1.030) Urine Protein Negative mg/dL (NEG-TRACE) Urine Glucose (UA) Negative mg/dL (NEG) Urine Ketones (Stick) 15 mg/dL (NEG) Urine Blood Negative (NEG) Urine Nitrite Negative (NEG) Urine Bilirubin Small (NEG) Urine Urobilinogen Dipstick 1.0 mg/dL (0.2 mg/dL) Urine Leukocyte Esterase Negative (NEG) Urine RBC 0 /HPF (0-2) Urine WBC 1-4 /HPF (0-4) Urine Squamous Epithelial Cells Few /LPF Urine Bacteria Few /HPF (0-FEW) Urine Mucus Marked /LPF Laboratory Tests Test 01/11/21 03:30 White Blood Count 11.1 x10^3/uL (4.0-11.0) Red Blood Count 4.32 x10^6/uL (4.30-5.70) Hemoglobin 13.0 g/dL (13.0-17.5) Hematocrit 39.6 % (39.0-53.0) Mean Corpuscular Volume 92 fL (79-100) Mean Corpuscular Hemoglobin 30 pg (25-35) Mean Corpuscular Hemoglobin Concent 33 g/dL (31-37) Red Cell Distribution Width 14.2 % (11.5-14.5) Platelet Count 150 x10^3/uL (140-400) Neutrophils (%) (Auto) 86 % (31-73) Lymphocytes (%) (Auto) 8 % (24-48) Monocytes (%) (Auto) 5 % (0-9) Eosinophils (%) (Auto) 0 % (0-3) Basophils (%) (Auto) 0 % (0-3) Neutrophils # (Auto) 9.5 x10^3/uL (1.8-7.7) Lymphocytes # (Auto) 0.9 x10^3/uL (1.0-4.8) Monocytes # (Auto) 0.6 x10^3/uL (0.0-1.1) Eosinophils # (Auto) 0.0 x10^3/uL (0.0-0.7) Basophils # (Auto) 0.0 x10^3/uL (0.0-0.2) Sodium Level 140 mmol/L (136-145) Potassium Level 4.9 mmol/L (3.5-5.1) Chloride Level 104 mmol/L (98-107) Carbon Dioxide Level 28 mmol/L (21-32) Anion Gap 8 (6-14) Blood Urea Nitrogen 17 mg/dL (8-26) Creatinine 1.1 mg/dL (0.7-1.3) Estimated GFR (Cockcroft-Gault) 80.9 Glucose Level 138 mg/dL (70-99) Calcium Level 8.5 mg/dL (8.5-10.1) Brief Hospital Course Mr. 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 on 01/08/212 Ibuprofen (Ibuprofen) 400 Mg Tablet, 800 MG PO DAILY for rash, #60 Prescribed by: DANA JONES on 01/11/21 0849 Montelukast Sodium (Montelukast Sodium Tablet ) 10 Mg Tablet, 10 MG PO QHS for rash, #30 Prescribed by: DANA JONES on 01/11/21 0849 Scheduled PRN Epinephrine (Epipen 2-Elias) 0.3 Mg/0.3 Ml Auto.injct, 0.3 MG IJ PRN 1X PRN for ANAPHYLAXIS, #2 Take as directed on packaging. Call 911 after giving your self this medication. Prescribed by: MARISSA HEREDIA on 11/08/16 0748 Discontinued Medications Diphenhydramine Hcl (Benadryl) 25 Mg Capsule, 1-2 CAP PO Q4-6HRS PRN for RASH, #20 Ref 0 Prescribed by: KESHA DUKES D.O. on 01/08/212 Methylprednisolone (Medrol) 4 Mg Tab.ds.pk, 1 PKG PO UD, #1 Prescribed by: MARISSA HEREDIA on 11/08/1648 Prednisone (Prednisone) 20 Mg Tablet, 2 TAB PO DAILY, #8 Start this prescription tomorrow, 01/09/21 Prescribed by: KESHA DUKES D.O. on 01/08/212 Patient Instructions Patient Instructions > 39 min face to faec, discussed Justicifation of Admission Dx: Justifications for Admission: Justification of Admission Dx: No (obs) DANA JONES MD Jan 11, 2021 09:41
[2021-01-11 11:08] VITALS: BP 114/64
--- NOTE | 2021-01-11 11:26 | NUR ---
Discharge instructions given to patient regarding following up with his primary care physician and a knife machine operator. Pt's mother states she already has a few knife machine operator that she will contact. Education giving over vasculitis and medications. Pt and mother verbalizes understanding.
[2021-01-12 20:07] LABS: ANA INTERP Negative (.)
== END 2021-01-11 11:20 | disposition home or self-care (01) ==
LOC: ER 00:04 → 6 SOUTH 06:33
PROVIDERS: ADMIT Internal Medicine; ATTEND Internal Medicine
DX: T78.40XA Allergy, unspecified, initial encounter (principal); I77.6 Arteritis, unspecified; F17.210 Nicotine dependence, cigarettes, uncomplicated; Z79.899 Other long term (current) drug therapy
CPT/HCPCS: 36415; 71046; 80048; 80076; 81001; 83605; 85007; 85025; 85610; 85730; 86038; 86140; 86160; 96372; 96374; 96375; 96376; 99284; G0378; J0171; J1200; J2270; J2405; J2920; J3490; J7512; G0379